=== PATIENT | female | born 1970 | race Caucasian/White ===

== ENCOUNTER 2019-09-24 23:09 | Emergency (ER) | payer BC, MEDICAID ==
[~2019-09-24] VITALS: Ht 172.7 cm; Wt 111.4 kg
[~2019-09-24 23:09] MED LIST: ATOR40TA PO; CLON-527 PO; DESV100T PO; DET2T PO; ESTR0.3T3 PO; HYDR12.5 PO; LAMO200T2 PO; LEVO112T52 PO; LEVOTHROID PO; LISI40TA4 PO; ZOLP10TA5 PO; [UNRECOGNIZED DRUG - CODE] PO
[2019-09-24 23:24] VITALS: BP 151/75
== END 2019-09-24 23:32 | disposition home or self-care (01) ==
LOC: ER 23:10
DX: F41.9 Anxiety disorder, unspecified (principal); I10 Essential (primary) hypertension; R11.0 Nausea; Z79.899 Other long term (current) drug therapy
CPT/HCPCS: 93005; 99283

== ENCOUNTER 2020-02-22 17:31 | Emergency (ER) | payer BC, MEDICAID ==
[~2020-02-22] VITALS: Ht 170.2 cm; Wt 106.8 kg
[2020-02-22 17:53] LABS: BASOPHILS % (AUTO) 0.4 % (0-1); EOSINOPHILS # (AUTO) 0.1 X10'3 (0-0.9); EOSINOPHILS % (AUTO) 1.8 % (0-6); HEMOGLOBIN 12.4 g/dl (12.0-16.0); LYMPHOCYTES # (AUTO) 0.9 X10'3 (1.1-4.8); LYMPHOCYTES % (AUTO) 17.2 % (21-51); MEAN CORPUSCULAR HEMOGLOBIN 28.4 PG (27.0-31.0); MEAN CORPUSCULAR HGB CONC 33.7 g/dL (33.0-36.5); MEAN CORPUSCULAR VOLUME 84.3 FL (78-98); MEAN PLATELET VOLUME 7.7 FL (7.4-10.4); MONOCYTES # (AUTO) 0.5 X10'3 (0-0.9); MONOCYTES % (AUTO) 8.8 % (2-12); NEUTROPHILS # (AUTO) 3.7 X10'3 (1.8-7.7); NEUTROPHILS % (AUTO) 71.8 % (42-75); PLATELET COUNT 172 X10'3 (140-440); RED BLOOD COUNT 4.39 X10'6 (4.20-5.60); WHITE BLOOD COUNT 5.2 X10'3 (4.5-11.0)
[2020-02-22 18:16] LABS: ALANINE AMINOTRANSFERASE 33 U/L (12-78); ALBUMIN 3.6 G/DL (3.4-5.0); ALBUMIN/GLOBULIN RATIO 1.3 (1.1-1.5); ALKALINE PHOSPHATASE 95 IU/L (46-116); ANION GAP 8 (8-16); ASPARTATE AMINO TRANSFERASE 38 U/L (10-37); BILIRUBIN,TOTAL 0.8 MG/DL (0.1-1.0); BLOOD UREA NITROGEN 11 MG/DL (7-18); BUN/CREATININE RATIO 13.9 (6.6-38.0); CALCIUM 9.3 MG/DL (8.5-10.1); CHLORIDE 101 MMOL/L (99-107); CREATININE 0.79 MG/DL (0.40-0.90); GLUCOSE 128 MG/DL (70-104); POTASSIUM 4.4 MMOL/L (3.5-5.1); SODIUM 137 MMOL/L (135-145); TOTAL CARBON DIOXIDE 28.2 MMOL/L (24-32); TOTAL PROTEIN 6.3 G/DL (6.4-8.2); eGFR 77 ML/MIN
[2020-02-22] MEDS ORDERED: aspirin 325mg tablet PO ONE (18:40)
[2020-02-22] MEDS ORDERED: iohexol 350MG/ML 100ml bottle IV ONE (18:41)
[2020-02-22] MEDS ORDERED: ketorolac trometh. 30mg/ml inj. IV ONE (19:10)
[2020-02-22] MEDS ORDERED: HYDROcodone/acetaminophen 5mg/325mg tablet PO ONE (19:25)
[2020-02-22 20:04] LABS: D-DIMER 1.75 MG/L FEU (0-0.50)
[2020-02-22] MEDS ORDERED: rivaroxaban 20mg tablet PO ONE (20:25)
[2020-02-22] MEDS ORDERED: HYDR-3965 PO (20:26)
[2020-02-22] MEDS ORDERED: RIVA15TA PO (20:26)
[2020-02-22 20:52] VITALS: BP 135/77
== END 2020-02-22 20:55 | disposition home or self-care (01) ==
LOC: ER 17:32
DX: I26.99 Other pulmonary embolism without acute cor pulmonale (principal); M54.9 Dorsalgia, unspecified; I10 Essential (primary) hypertension; E78.00 Pure hypercholesterolemia, unspecified; Z98.890 Other specified postprocedural states; Z79.899 Other long term (current) drug therapy
CPT/HCPCS: 36415; 71045; 71275; 80053; 83880; 84484; 85025; 85379; 93005; 99285; Q9967

== ENCOUNTER 2020-02-23 22:18 | Inpatient (IN) | payer BC, MEDICAID ==
[~2020-02-23] VITALS: Ht 170.2 cm; Wt 106.8 kg
[~2020-02-23 22:18] MED LIST changes: +HYDR-3965 PO; +RIVA15TA PO
[2020-02-23] MEDS ORDERED: levoFLOXACIN-Levaquin 750MG/D5 150 ML IV ONE (23:20)
[2020-02-24] VITALS (7 sets, daily range): BP systolic 80–133; BP diastolic 38–70
[2020-02-24 00:23] LABS: BASOPHILS % (AUTO) 0.6 % (0-1); EOSINOPHILS # (AUTO) 0.1 X10'3 (0-0.9); EOSINOPHILS % (AUTO) 1.4 % (0-6); HEMATOCRIT 36.1 % (35.0-45.0); HEMOGLOBIN 12.2 g/dl (12.0-16.0); LYMPHOCYTES # (AUTO) 0.8 X10'3 (1.1-4.8); LYMPHOCYTES % (AUTO) 14.9 % (21-51); MEAN CORPUSCULAR HEMOGLOBIN 28.6 PG (27.0-31.0); MEAN CORPUSCULAR HGB CONC 33.9 g/dL (33.0-36.5); MEAN CORPUSCULAR VOLUME 84.3 FL (78-98); MEAN PLATELET VOLUME 7.9 FL (7.4-10.4); MONOCYTES # (AUTO) 0.6 X10'3 (0-0.9); MONOCYTES % (AUTO) 11.1 % (2-12); NEUTROPHILS # (AUTO) 4.1 X10'3 (1.8-7.7); PLATELET COUNT 162 X10'3 (140-440); RED BLOOD COUNT 4.28 X10'6 (4.20-5.60); RED CELL DISTRIBUTION WIDTH 13.1 % (11.5-14.5); WHITE BLOOD COUNT 5.7 X10'3 (4.5-11.0)
[2020-02-24 00:39] LABS: ALANINE AMINOTRANSFERASE 31 U/L (12-78); ALBUMIN 3.3 G/DL (3.4-5.0); ALBUMIN/GLOBULIN RATIO 1.1 (1.1-1.5); ALKALINE PHOSPHATASE 87 IU/L (46-116); ANION GAP 7 (8-16); ASPARTATE AMINO TRANSFERASE 36 U/L (10-37); BILIRUBIN,TOTAL 0.7 MG/DL (0.1-1.0); BLOOD UREA NITROGEN 11 MG/DL (7-18); BUN/CREATININE RATIO 13.9 (6.6-38.0); CALCIUM 8.5 MG/DL (8.5-10.1); CHLORIDE 100 MMOL/L (99-107); CREATININE 0.79 MG/DL (0.40-0.90); GLUCOSE 131 MG/DL (70-104); POTASSIUM 4.7 MMOL/L (3.5-5.1); SODIUM 136 MMOL/L (135-145); TOTAL CARBON DIOXIDE 29.3 MMOL/L (24-32); TOTAL PROTEIN 6.2 G/DL (6.4-8.2); eGFR 77 ML/MIN
[2020-02-24] MEDS ORDERED: DEXT25CP PO (01:02)
[2020-02-24] MEDS ORDERED: DEXT50CP PO (01:02)
[2020-02-24] MEDS ORDERED: LEVO125T PO (01:02)
[2020-02-24] MEDS ORDERED: ZIPR20CA2 PO (01:05)
--- NOTE | 2020-02-24 01:21 | NUR ---
AMBULATED TO BR WITH STEADY GAIT O2 SATS AT 93%
[2020-02-24] MEDS ORDERED: HYDROcodone/acetaminophen 10/325mg tab PO PRN (01:25)
[2020-02-24] MEDS ORDERED: ondansetron/PF 4mg/2ml inj IV PRN (01:25)
[2020-02-24] MEDS ORDERED: potassium CL 10mEq/100ml bag 100 ML IV PRN ×2 (01:25)
[2020-02-24] MEDS ORDERED: mag hydrox/Alum hydrox/simeth 30ml oral suspension PO PRN (01:25)
[2020-02-24] MEDS ORDERED: potassium Cl 20 mEq SR tablet PO PRN ×2 (01:25)
[2020-02-24] MEDS ORDERED: acetaminophen 325mg tablet PO PRN (01:25)
[2020-02-24] MEDS ORDERED: magnesium hydroxide 30ml (MOM) UD suspension PO PRN (01:25)
[2020-02-24] MEDS ORDERED: HYDR-3965 PO (01:28)
[2020-02-24] MEDS ORDERED: RIVA15TA PO (01:28)
--- NOTE | 2020-02-24 01:43 | NUR ---
DR MARTIN ASKED THIS RECORDER TO ASKE PATIENT TO BRING IN HER MEDICATION MYDAYIS. PT REPORTS SHE TOOK HER AM DOSE AND SHOULD BE ABLE TO SKIP HER AFTERNOON DOSE. CALLED DR MARTIN TO MAKE SURE HE IS AWARE.
[2020-02-24] MEDS: HYDROcodone/acetaminophen 5mg/325mg tablet PO PRN ×4 (01:54→22:13)
--- NOTE | 2020-02-24 06:17 | NUR ---
REPORT GIVEN TO TITA LEE.
--- NOTE | 2020-02-24 06:35 | NUR ---
Patient in room PCU 3013. I have received report from TITA Fox and had the opportunity to ask questions and assume patient care. Pt sleeping comfortably at change of shift.
[2020-02-24] MEDS: AMPHETAMINE PO SCH (08:00)
[2020-02-24] MEDS ORDERED: lisinopril 20mg tablet PO SCH (08:00)
[2020-02-24] MEDS: DESVENLAFAXINE SUCCINATE 100 MG PO SCH (08:00)
[2020-02-24] MEDS: K and/or MAG REPLACEMENT MC SCH ×2 (08:00→19:32)
[2020-02-24] MEDS: DEXTROAMPHETAMINE PO SCH (08:00)
[2020-02-24] MEDS: ziprasidone 20mg capsule PO SCH ×2 (08:01→19:39)
[2020-02-24] MEDS: lamoTRIgine 100mg tablet PO SCH (08:01)
[2020-02-24] MEDS: atorvastatin 20mg tablet PO SCH (08:01)
[2020-02-24] MEDS: levoTHYROXINE 125mcg tablet PO SCH (08:01)
[2020-02-24] MEDS: rivaroxaban 15mg tablet PO SCH ×2 (08:02→17:33)
[2020-02-24] MEDS ORDERED: ketorolac trometh. 30mg/ml inj. IV PRN (09:30)
[2020-02-24] MEDS ORDERED: DIVA-76 PO (12:49)
[2020-02-24] MEDS ORDERED: LISI-600 PO (12:49)
[2020-02-24] MEDS ORDERED: PARO20TA6 PO (12:49)
[2020-02-24] MEDS ORDERED: LIOT5TAB10 PO (12:49)
[2020-02-24] MEDS ORDERED: ZIPR60CA7 PO (12:49)
[2020-02-24] MEDS ORDERED: FLUV100C2 PO (12:49)
[2020-02-24] MEDS ORDERED: OMEP-50 PO (12:49)
[2020-02-24] MEDS: piperacillin/tazo 4.5gm/100ml 100 ML IV SCH ×3 (13:48→23:48)
--- NOTE | 2020-02-24 15:32 | NUR ---
Spoke with Dr Dias regarding pt's low blood pressure, he gave new orders to give a one time bolus of Normal Saline, and hold Lisinopril until blood pressure resolves.
[2020-02-24] MEDS ORDERED: normal saline 1000ml 1,000 ML IV ONE (15:35)
--- NOTE | 2020-02-24 18:21 | NUR ---
Problems reprioritized. Patient report given, questions answered & plan of care reviewed with TITA Corado/TITA Garcia. Pt eating dinner at change of shift. Informed nurses that pt has been having low blood pressure, and I gave a liter bolus of Normal Saline, to keep monitoring BP closely. All pt needs met at this time.
--- NOTE | 2020-02-24 18:27 | NUR ---
Patient in room PCU 3013. I have received report from Yudith RIVERS and had the opportunity to ask questions and assume patient care.
--- NOTE | 2020-02-24 18:30 | NUR ---
Patient in room PCU 3013. I have received report from Yudith RIVERS and had the opportunity to ask questions and assume patient care.
[2020-02-24] MEDS: zolpidem 5mg tablet PO SCH (22:14)
[2020-02-24] MEDS: clonazePAM 1mg tablet PO PRN (23:48)
[2020-02-25 01:58] VITALS: BP 102/52
[2020-02-25] MEDS: HYDROcodone/acetaminophen 5mg/325mg tablet PO PRN (03:52)
--- NOTE | 2020-02-25 06:01 | NUR ---
Problems reprioritized. Patient report given, questions answered & plan of care reviewed with Yudith Daniel documentation: I have reviewed and agree with all interventions, assessments performed and documented by Radha RIVERS.
[2020-02-25 06:05] LABS: BASOPHILS % (AUTO) 0.9 % (0-1); EOSINOPHILS # (AUTO) 0.1 X10'3 (0-0.9); EOSINOPHILS % (AUTO) 3.2 % (0-6); HEMATOCRIT 31.2 % (35.0-45.0); HEMOGLOBIN 10.5 g/dl (12.0-16.0); LYMPHOCYTES # (AUTO) 0.7 X10'3 (1.1-4.8); LYMPHOCYTES % (AUTO) 20.3 % (21-51); MEAN CORPUSCULAR HEMOGLOBIN 28.4 PG (27.0-31.0); MEAN CORPUSCULAR HGB CONC 33.6 g/dL (33.0-36.5); MEAN CORPUSCULAR VOLUME 84.5 FL (78-98); MEAN PLATELET VOLUME 7.9 FL (7.4-10.4); MONOCYTES # (AUTO) 0.4 X10'3 (0-0.9); MONOCYTES % (AUTO) 12.6 % (2-12); NEUTROPHILS # (AUTO) 2.1 X10'3 (1.8-7.7); PLATELET COUNT 139 X10'3 (140-440); RED BLOOD COUNT 3.69 X10'6 (4.20-5.60); RED CELL DISTRIBUTION WIDTH 13.5 % (11.5-14.5); WHITE BLOOD COUNT 3.3 X10'3 (4.5-11.0)
--- NOTE | 2020-02-25 06:08 | NUR ---
Problems reprioritized. Patient report given, questions answered & plan of care reviewed with Yudith RIVERS.
[2020-02-25 06:22] LABS: ALANINE AMINOTRANSFERASE 21 U/L (12-78); ALBUMIN 2.7 G/DL (3.4-5.0); ALKALINE PHOSPHATASE 70 IU/L (46-116); ANION GAP 5 (8-16); ASPARTATE AMINO TRANSFERASE 28 U/L (10-37); BILIRUBIN,TOTAL 0.7 MG/DL (0.1-1.0); BLOOD UREA NITROGEN 11 MG/DL (7-18); CALCIUM 8.2 MG/DL (8.5-10.1); CHLORIDE 104 MMOL/L (99-107); CREATININE 0.92 MG/DL (0.40-0.90); GLUCOSE 94 MG/DL (70-104); POTASSIUM 4.6 MMOL/L (3.5-5.1); SODIUM 139 MMOL/L (135-145); TOTAL PROTEIN 5.3 G/DL (6.4-8.2); eGFR 65 ML/MIN
--- NOTE | 2020-02-25 06:22 | NUR ---
Patient in room PCU 3013. I have received report from Mak RN/Radha RN and had the opportunity to ask questions and assume patient care. Pt sleeping comfortably.
[2020-02-25 07:00] VITALS: BP 96/60
[2020-02-25] MEDS: piperacillin/tazo 4.5gm/100ml 100 ML IV SCH ×3 (07:34→23:22)
[2020-02-25] MEDS: rivaroxaban 15mg tablet PO SCH ×2 (07:34→17:35)
[2020-02-25] MEDS: lamoTRIgine 100mg tablet PO SCH (07:34)
[2020-02-25] MEDS: atorvastatin 20mg tablet PO SCH (07:34)
[2020-02-25] MEDS: levoTHYROXINE 125mcg tablet PO SCH (07:34)
[2020-02-25] MEDS: ziprasidone 20mg capsule PO SCH ×2 (07:34→20:28)
[2020-02-25] MEDS: DEXTROAMPHETAMINE PO SCH (08:00)
[2020-02-25] MEDS: DESVENLAFAXINE SUCCINATE 100 MG PO SCH ×3 (08:00→20:29)
[2020-02-25] MEDS: K and/or MAG REPLACEMENT MC SCH ×2 (08:00→19:28)
[2020-02-25] MEDS: AMPHETAMINE PO SCH (08:00)
[2020-02-25 11:00] VITALS: BP 127/75
[2020-02-25] MEDS: clonazePAM 1mg tablet PO PRN ×2 (11:30→16:28)
[2020-02-25] MEDS ORDERED: DEXTROAMPHETAMINE PO SCH (12:00)
[2020-02-25] MEDS ORDERED: AMPHETAMINE PO SCH (12:00)
[2020-02-25 15:00] VITALS: BP 150/85
[2020-02-25 18:00] VITALS: BP 142/82
--- NOTE | 2020-02-25 18:13 | NUR ---
Problems reprioritized. Patient report given, questions answered & plan of care reviewed with TITA Corado. Pt eating dinner, all needs met at this time.
[2020-02-25] MEDS: zolpidem 5mg tablet PO SCH (20:28)
[2020-02-25 23:00] VITALS: BP 136/81
[2020-02-26 03:00] VITALS: BP 141/87
[2020-02-26 06:00] VITALS: BP 142/79
[2020-02-26 06:12] LABS: BASOPHILS % (AUTO) 0.7 % (0-1); EOSINOPHILS # (AUTO) 0.1 X10'3 (0-0.9); HEMOGLOBIN 11.7 g/dl (12.0-16.0); LYMPHOCYTES # (AUTO) 0.8 X10'3 (1.1-4.8); MEAN CORPUSCULAR HEMOGLOBIN 28.6 PG (27.0-31.0); MEAN CORPUSCULAR HGB CONC 34.4 g/dL (33.0-36.5); MEAN CORPUSCULAR VOLUME 83.2 FL (78-98); MEAN PLATELET VOLUME 7.5 FL (7.4-10.4); MONOCYTES # (AUTO) 0.4 X10'3 (0-0.9); MONOCYTES % (AUTO) 11.5 % (2-12); NEUTROPHILS # (AUTO) 1.9 X10'3 (1.8-7.7); NEUTROPHILS % (AUTO) 59.8 % (42-75); PLATELET COUNT 167 X10'3 (140-440); RED BLOOD COUNT 4.09 X10'6 (4.20-5.60); RED CELL DISTRIBUTION WIDTH 13.2 % (11.5-14.5); WHITE BLOOD COUNT 3.2 X10'3 (4.5-11.0)
--- NOTE | 2020-02-26 06:23 | NUR ---
Problems reprioritized. Patient report given, questions answered & plan of care reviewed with Alejandrina RIVERS.
[2020-02-26 06:31] LABS: ALANINE AMINOTRANSFERASE 24 U/L (12-78); ALBUMIN 3.1 G/DL (3.4-5.0); ALKALINE PHOSPHATASE 83 IU/L (46-116); ANION GAP 8 (8-16); ASPARTATE AMINO TRANSFERASE 33 U/L (10-37); BILIRUBIN,TOTAL 0.7 MG/DL (0.1-1.0); BLOOD UREA NITROGEN 8 MG/DL (7-18); BUN/CREATININE RATIO 11.6 (6.6-38.0); CALCIUM 8.7 MG/DL (8.5-10.1); CHLORIDE 103 MMOL/L (99-107); CREATININE 0.69 MG/DL (0.40-0.90); GLUCOSE 94 MG/DL (70-104); SODIUM 138 MMOL/L (135-145); TOTAL PROTEIN 6.1 G/DL (6.4-8.2); eGFR 90 ML/MIN
--- NOTE | 2020-02-26 06:33 | NUR ---
Patient in room PCU 3013. I have received report from Mak RIVERS and had the opportunity to ask questions and assume patient care.
[2020-02-26] MEDS: piperacillin/tazo 4.5gm/100ml 100 ML IV SCH (07:13)
[2020-02-26] MEDS: rivaroxaban 15mg tablet PO SCH (07:13)
[2020-02-26] MEDS: DESVENLAFAXINE SUCCINATE 100 MG PO SCH (07:13)
[2020-02-26] MEDS: levoTHYROXINE 125mcg tablet PO SCH (07:13)
[2020-02-26] MEDS: atorvastatin 20mg tablet PO SCH (07:13)
[2020-02-26] MEDS: lamoTRIgine 100mg tablet PO SCH (07:13)
[2020-02-26] MEDS: ziprasidone 20mg capsule PO SCH (07:15)
[2020-02-26] MEDS: K and/or MAG REPLACEMENT MC SCH (07:15)
[2020-02-26] MEDS: DEXTROAMPHETAMINE PO SCH (09:00)
[2020-02-26] MEDS: AMPHETAMINE PO SCH (09:00)
[2020-02-26] MEDS ORDERED: AMOX-117 PO (09:56)
--- NOTE | 2020-02-26 11:15 | NUR ---
pt is stable for discharge per md orders, discharge instructions reviewed w/ pt and all questions answered, new med prescription faxed to corinne garcia per pt request, tele monitor dc'ed and returned, piv dc'ed intact, dry dressing placed, pt discharges to home at 1100, wheeled down to [facility] w/ hospital staff to private vehicle w/ pt's father, all belongings w/ pt at time of discharge
== END 2020-02-26 11:27 | disposition home or self-care (01) | DRG 175 ==
LOC: ER 22:20 → ED HOLD 02-24 01:24 → PCU 3S 02-24 04:30
PROVIDERS: ADMIT Internal Medicine; ATTEND Internal Medicine
DX: I26.99 Other pulmonary embolism without acute cor pulmonale (principal); J18.9 Pneumonia, unspecified organism; E03.9 Hypothyroidism, unspecified; E78.00 Pure hypercholesterolemia, unspecified; E78.5 Hyperlipidemia, unspecified; F12.90 Cannabis use, unspecified, uncomplicated; F32.9 Major depressive disorder, single episode, unspecified; F41.9 Anxiety disorder, unspecified; I95.9 Hypotension, unspecified; Z20.828 Contact with and (suspected) exposure to other viral communicable diseases; I10 Essential (primary) hypertension; R09.02 Hypoxemia; Z77.22 Contact with and (suspected) exposure to environmental tobacco smoke (acute) (chronic); Z79.01 Long term (current) use of anticoagulants; Z79.899 Other long term (current) drug therapy; Z82.49 Family history of ischemic heart disease and other diseases of the circulatory system; Z86.711 Personal history of pulmonary embolism; Z89.512 Acquired absence of left leg below knee
CPT/HCPCS: 36415; 71045; 80053; 83605; 84145; 84443; 85025; 87040; 87081; 87635; 96375; 99285; G0378; J1885; J1956; J2543; J7030

== ENCOUNTER 2022-05-29 09:28 | Emergency (ER) | payer BC, MEDICAID ==
[~2022-05-29] VITALS: Ht 170.2 cm; Wt 114.1 kg
[~2022-05-29 09:28] MED LIST changes: -DET2T PO; +DEXT25CP PO; +DEXT50CP PO; +DIVA-76 PO; -ESTR0.3T3 PO; +FLUV100C2 PO; -HYDR12.5 PO; -LEVO112T52 PO; +LEVO125T PO; -LEVOTHROID PO; +LIOT5TAB10 PO; +LISI20TA28 PO; +LISI40TA13 PO; -LISI40TA4 PO; +OMEP20CA16 PO; +PARO20TA6 PO; +ZIPR60CA7 PO; -[UNRECOGNIZED DRUG - CODE] PO
[2022-05-29] MEDS ORDERED: HYDR-3965 PO ×2 (12:59→17:29)
[2022-05-29] MEDS ORDERED: CYCL-1 PO (12:59)
[2022-05-29] MEDS ORDERED: cyclobenzaprine 10mg tablet PO ONE (13:05)
[2022-05-29] MEDS ORDERED: ketorolac trometh inj. 60 MG/2 ML VIAL IM ONE (13:05)
[2022-05-29 13:18] VITALS: BP 126/75
== END 2022-05-29 13:30 | disposition home or self-care (01) ==
LOC: ER 09:28
DX: S16.1XXA Strain of muscle, fascia and tendon at neck level, initial encounter (principal); M54.9 Dorsalgia, unspecified; V49.9XXA Car occupant (driver) (passenger) injured in unspecified traffic accident, initial encounter; Y93.89 Activity, other specified; Y92.89 Other specified places as the place of occurrence of the external cause; Y99.8 Other external cause status
CPT/HCPCS: 70450; 72125; 96372; 99284; J1885; L0172

== ENCOUNTER 2023-05-01 04:52 | Emergency (ER) | payer BC, MEDICAID ==
[~2023-05-01] VITALS: Ht 170.2 cm; Wt 120.5 kg
[~2023-05-01 04:52] MED LIST changes: +CYCL-1 PO
[2023-05-01] MEDS ORDERED: normal saline 1000ML IV soln IVB ONE (05:20)
[2023-05-01] MEDS ORDERED: ketorolac trometh. 30mg/ml inj. IV ONE (05:20)
[2023-05-01 06:00] LABS: BASOPHILS % (AUTO) 0.8 % (0-1); EOSINOPHILS # (AUTO) 0.1 X10'3 (0-0.9); EOSINOPHILS % (AUTO) 3.3 % (0-6); HEMATOCRIT 42.2 % (35.0-45.0); HEMOGLOBIN 14.1 g/dl (12.0-16.0); LYMPHOCYTES # (AUTO) 0.9 X10'3 (1.1-4.8); LYMPHOCYTES % (AUTO) 34.6 % (21-51); MEAN CORPUSCULAR HEMOGLOBIN 26.6 PG (27.0-31.0); MEAN CORPUSCULAR HGB CONC 33.3 g/dL (33.0-36.5); MEAN CORPUSCULAR VOLUME 79.9 FL (78-98); MEAN PLATELET VOLUME 8.4 FL (7.4-10.4); MONOCYTES # (AUTO) 0.3 X10'3 (0-0.9); NEUTROPHILS # (AUTO) 1.3 X10'3 (1.8-7.7); NEUTROPHILS % (AUTO) 48.3 % (42-75); PLATELET COUNT 106 X10'3 (140-440); RED BLOOD COUNT 5.28 X10'6 (4.20-5.60); RED CELL DISTRIBUTION WIDTH 15.9 % (11.5-14.5); WHITE BLOOD COUNT 2.6 X10'3 (4.5-11.0)
[2023-05-01 06:09] LABS: D-DIMER 0.55 MG/L FEU (0-0.50)
[2023-05-01 06:28] LABS: ALANINE AMINOTRANSFERASE 63 U/L (12-78); ALBUMIN 3.7 G/DL (3.4-5.0); ANION GAP 7 (8-16); ASPARTATE AMINO TRANSFERASE 76 U/L (10-37); BLOOD UREA NITROGEN 8 MG/DL (7-18); BUN/CREATININE RATIO 12.1 (10.0-20.0); CALCIUM 9.6 MG/DL (8.5-10.1); CHLORIDE 101 MMOL/L (99-107); CREATININE 0.66 MG/DL (0.40-0.90); GLUCOSE 121 MG/DL (70-104); LIPASE 84 U/L (16-77); MAGNESIUM 2.2 MG/DL (1.5-2.4); POTASSIUM 4.6 MMOL/L (3.5-5.1); SODIUM 138 MMOL/L (135-145); TOTAL CARBON DIOXIDE 29.9 MMOL/L (24-32); eCRCL 97 ML/MIN; eGFR > 90 ML/MIN
[2023-05-01 06:44] LABS: ALBUMIN/GLOBULIN RATIO 0.9 (1.1-1.5); ALKALINE PHOSPHATASE 137 IU/L (46-116); BILIRUBIN,TOTAL 0.4 MG/DL (0.1-1.0); TOTAL PROTEIN 7.7 G/DL (6.4-8.2)
[2023-05-01 06:50] LABS: TOTAL CELLS COUNTED 100
[2023-05-01 06:51] LABS: LARGE PLATELETS FEW; MICROCYTOSIS 1+; PLATELET ESTIMATE DECREASED
[2023-05-01] MEDS ORDERED: iohexol 350MG/ML 100ml bottle IV ONE (08:08)
[2023-05-01 08:36] VITALS: BP 135/80; PULSE 77; RESP 16; TEMP 97.1; O2SAT 94
[2023-05-01] MEDS ORDERED: mag hydrox/Alum hydrox/simeth 30ml oral suspension PO ONE (10:15)
== END 2023-05-01 10:41 | disposition home or self-care (01) ==
LOC: ER 04:53
DX: R10.12 Left upper quadrant pain (principal); Z20.822 Contact with and (suspected) exposure to COVID-19; E78.00 Pure hypercholesterolemia, unspecified; I11.0 Hypertensive heart disease with heart failure; F31.9 Bipolar disorder, unspecified; F12.10 Cannabis abuse, uncomplicated; Z79.899 Other long term (current) drug therapy
CPT/HCPCS: 36415; 71045; 71275; 74177; 80053; 83690; 83735; 84145; 84484; 85007; 85025; 85379; 87811; 93005; 96361; 96374; 99285; J1885; J3490; J7030; Q9967